=== PATIENT | male | born 1960 | race American Indian/Alaskan Native ===

== ENCOUNTER 2018-09-08 06:04 | Day surgery (SDC) | payer BC ==
[~2018-09-08 06:04] MED LIST: LACTATED RINGERS 1,000 ML IV SCH; VERSED IV SCH
[2018-09-08] MEDS ORDERED: ANCEF/STERILE WATER 2 GM/20 ML IV NR (07:00)
[2018-09-08] MEDS ORDERED: ZEMURON IV ONE ×2 (07:20→10:24)
[2018-09-08] MEDS ORDERED: SUBLIMAZE ONE (07:20)
[2018-09-08] MEDS ORDERED: XYLOCAINE MPF 2% ONE (07:20)
[2018-09-08] MEDS ORDERED: DIPRIVAN 10 MG/ML IV ONE (07:21)
[2018-09-08] MEDS ORDERED: XYLOCAINE 1% 20 mL ONE (07:26)
[2018-09-08] MEDS ORDERED: MARCAINE 0.5% INFILTRATI ONE ×2 (07:26→10:45)
[2018-09-08] MEDS ORDERED: ZOFRAN IV PRN (07:30)
[2018-09-08] MEDS ORDERED: DILAUDID IV PRN (07:30)
--- NOTE | 2018-09-08 07:30 | Anesthesia Day of Surgery ---
Anesthesia Day of Surgery - Day of Surgery Patient Examined: Yes Patient H&P Reviewed: Yes Patient is NPO: Yes
--- NOTE | 2018-09-08 07:30 | Anesthesia Consultation ---
Anesthesia Consult and Med Hx - Airway Anesthetic Teeth Evaluation: Partials ROM Head & Neck: Adequate Mallampati Class: Class II Intubation Access Assessment: Good - Pulmonary Exam CTA: Yes - Cardiac Exam Cardiac Exam: RRR - Pre-Operative Health Status ASA Pre-Surgery Classification: ASA2 Proposed Anesthetic Plan: General - Pulmonary Hx Smoking: No - Cardiovascular System Hx Hypertension: Yes (RECENLY DX) - Central Nervous System Hx Psychiatric Problems: No
--- NOTE | 2018-09-08 10:09 | XRay Report ---
AP ABDOMEN: HISTORY: instrument count/needle. lost needle. The abdominal gas pattern is unremarkable. No masses or organomegaly is identified and there is no gross evidence of free air or fluid. No significant soft tissue calcifications are noted. IMPRESSION: Unremarkable abdomen. No foreign body identified.
[2018-09-08] MEDS ORDERED: DILAUDID ONE (10:14)
[2018-09-08] MEDS ORDERED: NACL 0.9% IR ONE (10:45)
[2018-09-08] MEDS ORDERED: WATER FOR IRRIG STERILE IR ONE (10:45)
[2018-09-08] MEDS ORDERED: XYLOCAINE 1% 20 mL INFILTRATI ONE (10:45)
[2018-09-08] MEDS ORDERED: ZOFRAN ONE ×2 (10:46→10:47)
[2018-09-08] MEDS ORDERED: ROBINUL ONE ×2 (10:47)
[2018-09-08] MEDS ORDERED: BLOXIVERZ ONE (10:47)
--- NOTE | 2018-09-08 11:11 | Short Stay Summary ---
Short Stay Documentation Date of service: 09/08/18 - History Principal diagnosis: right inguinal hernia H&P: obtained from office - Allergies and Medications Current Medications: Allergies No Known Allergies Allergy (Verified 09/07/18 19:02) Home Medications Medication Instructions Recorded Confirmed Last Taken Type Aspirin EC 81 mg PO QDAY 09/07/18 09/07/18 09/07/18 09:00 History Cyanocobalamin (Vitamin B-12) 1,000 mcg PO DAILY 09/07/18 09/07/18 09/07/18 09:00 History [Vitamin B-12] Multivit-Min/Folic/Vit K/Lycop 1 each PO DAILY 09/07/18 09/07/18 09/07/18 09:00 History [Eql One Daily Mens 50 Plus Adv] Perindopril Arg/Amlodipine Bes 1 each PO DAILY 09/07/18 09/07/18 09/07/18 09:00 History [Prestalia 14 mg-10 mg Tablet] Active Medications Cefazolin Sodium (Ancef/Sterile Water 2 Gm/20 Ml) 2 gm IV PREOP NR Stop: 09/08/18 23:45 Hydromorphone HCl (Dilaudid) 0.5 mg IV Q10MIN PRN PRN Reason: Pain , Severe (7-10) Stop: 09/08/18 20:00 Lactated Ringer's (Lactated Ringers) 1,000 mls @ 75 mls/hr IV DIRECT KRYSTAL Last Admin: 09/08/18 06:50 Dose: 75 mls/hr Documented by: Ondansetron HCl (Zofran) 4 mg IV ONCE PRN PRN Reason: Nausea And Vomiting Stop: 09/08/18 16:00 - Brief post op/procedure progress note Date of procedure: 09/08/18 Pre-op diagnosis: right inguinal hernia Post-op diagnosis: same Procedure: robotic assisted right inguinal hernia repair with mesh Anesthesia: GETA, local Findings: indirect hernia with small cord lipoma Surgeon: ZACH SMITH Pipe Straightener: NATY QUINTEROS Estimated blood loss: minimal Pathology: none Specimen disposition: to lab Condition: stable - Hospital course Hospital course: Pt observed in PACU and discharged to home in stable condition. - Disposition Condition at discharge: Good Disposition: DC-01 TO HOME OR SELFCARE Short Stay Discharge Plan Activity: other (no heavy lifting for 6 weeks.) Diet: regular Wound: open to air, per your surgeon's advice Additional Instructions: SEE PRINTED DISCHARGE INSTRUCTIONS Follow up with: GLENNY HURTADO MD [Primary Care Provider] - 7 Days ZACH SMITH DO [Staff Physician] - 14 Days Prescriptions: Ibuprofen [Motrin 800 MG tab] 800 mg PO Q8HR #30 tablet HYDROcodone/APAP 5-325 [[place] 5/325] 1 each PO Q6HR PRN #20 tablet PRN Reason: Pain
[2018-09-08 13:07] VITALS: BP 121/60
[2018-09-08] MEDS ORDERED: REGLAN ONE (13:26)
--- NOTE | 2018-09-08 13:43 | Post Anesthesia Evaluation ---
- Post Anesthesia Evaluation Patient Participated: Yes Airway Patent: Yes Stable Respiratory Function: Yes Nausea/Vomiting: No Temp > 96.8F: Yes Pain Manageable: Yes Adequeate Hydration: Yes Anesthesia Complications: No
[2018-09-08] MEDS ORDERED: REGLAN IV ONE (14:29)
--- NOTE | 2018-09-14 15:17 | Operative Report ---
PREOPERATIVE DIAGNOSIS: Right inguinal hernia. POSTOPERATIVE DIAGNOSIS: Right inguinal hernia. PROCEDURE: Robotic-assisted right inguinal hernia repair with mesh. ANESTHESIA: General endotracheal anesthesia, local. FINDINGS: Indirect hernia with small cord lipoma. SURGEON: Aileen Phillips DO COLLAR TACKER: Red Kauffman MD ESTIMATED BLOOD LOSS: Minimal. PATHOLOGY: None. SPECIMEN DISPOSITION: To lab. CONDITION: Stable to PACU. HISTORY OF PRESENT ILLNESS AND INDICATION: The patient is a 58-year-old male, who was seen in the surgery clinic with complaints of right inguinal pain. He was found to have a reducible right inguinal hernia. Recommendation was to repair the hernia. All risks, benefits, and alternatives to surgery were discussed with the patient including the robotic, laparoscopic, open approaches. All questions were answered and consent obtained. PROCEDURE IN DETAIL: The patient was identified in the preoperative area, taken back to the operating room, and placed on the operating table in supine position. After anesthesia was induced, the abdominal and groin hairs were clipped and a Diaz catheter was sterilely placed by the circulating nurse. Abdomen was then prepped and draped in the usual sterile fashion and timeout performed. All skin incisions were infiltrated with local anesthetic. A 12 mm incision was made above the umbilicus through which a Veress needle was inserted. The Veress needle position was confirmed using the saline drop test and the abdomen insufflated to 15 mmHg. Once this was done, the Veress needle was removed and a 12 mm Optiview balloon trocar was placed through this incision. The abdomen was inspected. There was no underlying injury to any of the abdominal structures. The patient was then placed in Trendelenburg and 2 additional robotic trocars were placed, one in the right upper abdomen and one in the left upper abdomen under direct visualization. The robot was then docked with a fenestrated bipolar grasper in arm #2 and a monopolar scissors in arm #1 and the surgeon was transferred to the console. A peritoneal flap was created approximately 6-7 cm from the inguinal canal using the scissors. This incision was taken from the ASIS all the way to the medial umbilical ligament. The preperitoneal plane was then dissected with great care to maintain hemostasis along the way. The inferior epigastric vessels were identified and undisturbed. First, I created my lateral pocket by using blunt dissection in an avascular plane. Then, I directed my attention to the medial pocket. Dissection was carried down in a blunt fashion until the pubic tubercle was identified. The fatty tissue overlying the pubic tubercle was dissected off and the vein overlying the pubic tubercle was ligated using the fenestrated bipolar. At this point, the hernia sac was identified and retracted until the edge of the hernia sac was seen. Using a combination of blunt dissection and electrocautery, the cord structures were from the hernia sac until the hernia sac was completely reduced. A small cord lipoma was also identified and reduced. Great care was taken to avoid injury to the surrounding structures. Once the hernia sac was completely reduced and the peritoneum was seen to lay flat, the pocket was checked for hemostasis, which was carefully ensured. At this point, a medium right-sided Bard 3DMax mesh was inserted into the abdomen along with suture material. The mesh was placed into the pocket in the usual fashion and the medial aspect sutured to the pubic tubercle using a 0 Vicryl interrupted suture. The lateral aspect of the mesh was also affixed to the anterior abdominal wall using a 0 Vicryl interrupted suture. All potential hernia defects were covered adequately with the mesh. An 18-Romanian Angiocath was then inserted by the certified surgical first assistant through the abdominal wall and into the pocket and the pocket was then closed using 3-0 V-Loc continuous suture. Once the preperitoneal pocket was closed, no mesh was exposed to the bowel. The suture material was removed by the certified surgical first assistant under direct visualization. The robot was then undocked and the surgeon scrubbed back in. The remainder of the procedure was performed laparoscopically. The abdomen was slowly desufflated and the preperitoneal pocket was evacuated of air using the angiocatheter. The trocars were then removed under direct visualization and the abdomen completely desufflated. The 12 mm port fascia was closed with interrupted 0 Vicryl suture. The skin incisions once again infiltrated with local anesthetic and closed using 4-0 Monocryl subcuticular stitches and skin glue. The angiocatheter was then removed. At the end of the case, all sponge, instrument, sharp counts were correct x 2. The scrotum was checked and both testicles were in anatomic position. The patient was awoken from anesthesia, Diaz catheter removed, and he was taken to PACU in stable condition. JOB# [id number] JACK/[id number]
== END 2018-09-08 06:05 | disposition home or self-care (01) ==
LOC: OR 06:04
PROVIDERS: ATTEND Surgery
DX: K40.90 Unilateral inguinal hernia, without obstruction or gangrene, not specified as recurrent (principal); D17.6 Benign lipomatous neoplasm of spermatic cord; I10 Essential (primary) hypertension; Z79.899 Other long term (current) drug therapy; Z98.890 Other specified postprocedural states
CPT/HCPCS: 49650; 74018; C1781; J1170; J2250; J2405; J2704; J2710; J2765; J3010; J7120; S2900